=== PATIENT | female | born 1995 | race Caucasian/White ===

== ENCOUNTER 2018-11-26 13:34 | Day surgery (SDC) | payer OTHER ==
[2018-11-21 10:02] LABS: HEMATOCRIT 39.3 % (36.0-47.0); HEMOGLOBIN 13.9 g/dL (12.0-15.5); MEAN CORPUSCULAR HEMOGLOBIN 29.3 pg (27.0-33.4); MEAN CORPUSCULAR HGB CONC 35.5 g/dL (32.0-36.0); MEAN CORPUSCULAR VOLUME 83 fl (80-97); PLATELET COUNT 201 10^3/uL (150-450); RED BLOOD COUNT 4.75 10^6/uL (3.72-5.28); RED CELL DISTRIBUTION WIDTH 13.1 % (11.5-14.0); WHITE BLOOD COUNT 6.4 10^3/uL (4.0-10.5)
[2018-11-21 10:26] LABS: ALANINE AMINOTRANSFERASE 27 U/L (9-52); ALBUMIN 4.7 g/dL (3.5-5.0); ALKALINE PHOSPHATASE 70 U/L (38-126); AMYLASE 61 U/L (30-110); ANION GAP 9 (5-19); ASPARTATE AMINO TRANSFERASE 24 U/L (14-36); BILIRUBIN,DIRECT 0.2 mg/dL (0.0-0.4); BILIRUBIN,TOTAL 0.5 mg/dL (0.2-1.3); BLOOD UREA NITROGEN 16 mg/dL (7-20); CALCIUM 9.3 mg/dL (8.4-10.2); CARBON DIOXIDE 27 mmol/L (22-30); CHLORIDE 106 mmol/L (98-107); GLUCOSE 84 mg/dL (75-110); POTASSIUM 4.4 mmol/L (3.6-5.0); SODIUM 142.1 mmol/L (137-145); TOTAL PROTEIN 7.4 g/dL (6.3-8.2)
[~2018-11-26 13:34] MED LIST: ACETAMINOPHEN 325 MG TABLET PO PRN; BUPIVACAINE HCL 0.25 % INJ/PF (2.5 MG/1 ML) 30 ML VIAL ONE; CEFAZOLIN 1 GM/D5W RTU 1 GM/50 ML RTUPB IV PRN; DEXAMETHASONE SOD PHOSPHATE INJ 4 MG/1 ML VIAL ONE; LACTATED RINGERS 1000 ML IV PRN; LIDOCAINE 0.5% INJ-PF (5 MG/ML) 50 ML SDV SUBCUT PRN; LIDOCAINE 2% INJ-PF (20 MG/ML) 2 ML AMPUL ONE; ROCURONIUM BROMIDE INJ 50 MG/5 ML VIAL IV ONE; SUCCINYLCHOLINE CHLORIDE INJ 200 MG/10 ML VIAL ONE
[2018-11-26] MEDS ORDERED: CEFAZOLIN 1 GM/D5W RTU 1 GM/50 ML RTUPB IV ONE (14:27)
[2018-11-26] MEDS ORDERED: ONDANSETRON HCL INJ/PF 4 MG/2 ML SDV ONE (14:27)
[2018-11-26] MEDS ORDERED: ONDANSETRON HCL INJ/PF 4 MG/2 ML SDV IV ONE ×2 (15:00→15:30)
[2018-11-26] MEDS ORDERED: HYDROMORPHONE HCL INJ/PF 2 MG/ML AMPULE ONE (15:23)
[2018-11-26] MEDS ORDERED: FENTANYL CITRATE INJ/PF 100 MCG/2 ML AMPUL ONE (15:23)
[2018-11-26] MEDS ORDERED: MIDAZOLAM 2 MG/2 ML INJ ONE (15:23)
[2018-11-26] MEDS ORDERED: ACETAMINOPHEN 1,000 MG/100 ML RTUPB IV ONE (15:24)
[2018-11-26] MEDS ORDERED: PROPOFOL INJ 200 MG/20 ML VIAL IV ONE (15:24)
[2018-11-26] MEDS ORDERED: EPHEDRINE SULFATE INJ 50 MG/1 ML AMPULE ONE (15:27)
[2018-11-26] MEDS ORDERED: SUGAMMADEX SODIUM 200 MG/2 ML SDV IV ONE (15:27)
[2018-11-26] MEDS ORDERED: FENTANYL CITRATE INJ/PF 100 MCG/2 ML AMPUL IV PRN ×3 (16:32)
[2018-11-26] MEDS ORDERED: PROMETHAZINE HCL INJ 25 MG/1 ML VIAL IV PRN (16:32)
[2018-11-26] MEDS ORDERED: MEPERIDINE HCL/PF INJ 25 MG/1 ML DISP.SYRIN IV PRN (16:32)
[2018-11-26] MEDS ORDERED: DIPHENHYDRAMINE HCL 50 MG/ML VIAL IV PRN (16:32)
--- NOTE | 2018-11-26 16:37 | Operative Report ---
Operative Report DATE OF SURGERY: 11/26/18 PREOPERATIVE DIAGNOSIS: Biliary dyskinesia POSTOPERATIVE DIAGNOSIS: Same OPERATION: Laparoscopic cholecystectomy SURGEON: CHEVY ALICIA 1ST SERVICE CLERK: CARIE RODRIGUEZ TISSUE REMOVED OR ALTERED: Gallbladder with contents COMPLICATIONS: None ESTIMATED BLOOD LOSS: Scant INTRAOPERATIVE FINDINGS: See below PROCEDURE: After obtaining informed consent, the patient was taken to the operating room. General Anesthesia was induced; the arms were extended, and the abdomen was exposed, and prepped and draped in a sterile fashion. Instrumentation was set up for laparoscopic cholecystectomy. Surgical plan and surgical timeout were conducted. A vertical incision was made above the umbilicus, and a verres needle was inserted uneventfully into the peritoneal cavity. Pneumoperitoneum was established. The verres needle was removed and a 5 mm trocar was inserted and a 5 mm flexible laparoscope was inserted. Visualization of the peritoneal cavity confirmed safe uneventful entry. Under direct visualization 3 additional 5 mm ports were esta blished, one in the subxiphoid position and second in the subcostal position. Visualization of the hepatobiliary anatomy revealed no anatomic variations. A grasper was placed on the fundus of the gallbladder and the gallbladder is elevated over the right surface of the liver; a second grasper was used to grasp the infundibulum of the gallbladder. The neck of the gallbladder and junction with the cystic duct was dissected out. The Cystic artery was in its usual location medial and cephalad to the cystic duct. The cystic artery was surrounded with a right angle clamp, clipped twice proximally and divided with laparoscopic scissors. We now opened the triangle of Calot by dividing the peritoneal reflection on both the medial and lateral sides of the cystic duct infundibular junction. The critical view was obtained. We now milked the cystic duct of any possible stones, clipped the cystic duct approximately 2 times once distally and divided with scissors. The gallbladder was now removed from the undersurface of the liver using hook cautery dissection. Graspers were repositioned and the gallbladder was removed uneventfully from the abdominal cavity through the super umbilical port site incision. The specimen was examined, then passed off to pathology for permanent analysis. We returned to the peritoneal cavity check for bleeding, and evidence of bile leak, and there was none. We Confirmed satisfactory placement of clips on cystic duct and cystic artery were secured . At this point we felt the operation was complete. The subcutaneous tissue was then anesthetized with quarter percent Marcaine Sponge and needle counts are correct. All ports removed under direct visualization pneumoperitoneum evacuated, and 5 mm port wounds closed with 3-0 Vicryl suture, benzoin and Steri-Strips. The patient was extubated, and taken to the recovery room in stable condition. The physician recruitment assistant, Ms. Dougherty, provided assistance during this case by: Assisting and port insertion, retracting tissue, instillation of local anesthesia and closure of skin incisions.
[2018-11-26] MEDS ORDERED: OXYCODONE-ACETAMINOPHEN 5-325 MG TABLET PO PRN (16:44)
--- NOTE | 2018-11-26 16:44 | Discharge Summary ---
Discharge Summary (SDC) - Discharge Final Diagnosis: biliary dyskinesia Date of Surgery: 11/26/18 Discharge Date: 11/26/18 Condition: Stable Treatment or Instructions: [facility] [address] [place] [id number] Discharge Instructions: Laparoscopic Surgery 1. General Information: a. DO NOT DRIVE a car or operate dangerous machinery for 3-4 days or while taking narcotic pain pills. b. DO NOT consume alcohol, tranquilizers, sleeping medications or any non- prescribed medications for 24 hours unless approved by your doctor or as long as taking narcotic prescription medications. c. DO NOT make important decisions or sign any important papers for the first 24 hours after surgery. d. When discharged home the same day of surgery have a responsible person with you for the first night. 2. Activity Restrictions: 2 weeks a. NO heavy lifting, straining abdominal muscles, bending over a lot, yard work, house work, or sports for [address] NOT [address] for 3-4 days or while taking _Toradol_ . c. It is fine to go for walks, up and down steps, ride in a car. d. Elevate your head when sleeping/resting. 3. Treatment: a. You may shower 24 hours after surgery, no baths or swimming for 2 weeks. Remove band-aids or dressings before shower but leave paper strips (steri- strips) on the skin to fall off on their own. If still on at postoperative visit they will be removed then. b. Drainage of fluid or blood is not unusual from an incision. If occurs, you can clean with peroxide and cotton ball daily and cover with dry gauze until the wound seals. c. If a lot of bleeding occurs, you can hold pressure with a gauze or cloth over the site for 10 minutes and it will usually stop. If bleeding continues you will need to call for possible evaluation in office or emergency room. 4. Medications: a. _toradol_ may be taken for pain as needed, one tablet every6 hours. b. You should resume all normal medications unless a change is specified by your doctors. c. Antibiotic(s) if needed ( NONE) 5. Diet: Begin with clear liquids and may progress to your normal diet if not nauseated. No high fat, high protein foods the day of surgery. 6. The following may occur after laparoscopic surgery: a. Shoulder or upper back ache from retained gas that should resolve in 1-2 days b. Soreness and bruising at incision sites will resolve with time. c. Scrotal swelling (labia in women) and bruising is often seen after hernia surgery. d. Sore throat e. Fatigue may last days to weeks. f. Difficulty urinating may occur and may need to come into emergency room for urinary catheter placement. 7. Notify Physician If: a. Worsening or pain not improved with pain medication b. Persistent nausea and vomiting c. Fever above 101 d. Persistent bleeding or swelling at operative site e. Unable to urinate and uncomfortable bladder 6-8 hours after surgery 8..Follow Up Care: a. Schedule a follow up appointment with your doctor for 2 weeks. In the event of any postoperative problems or questions or you may call the office during business hours or the On-Call physician evenings and weekends at [facility]. [facility] I understand the instructions for my postoperative care as described above and a copy has been given to me. Patient/Significant Other Witness Date Prescriptions: Ketorolac Tromethamine [Toradol 10 mg Tablet] 10 mg PO Q6HP PRN #20 tablet PRN Reason: Referrals: ZENY URIBE MD [Primary Care Provider] - Discharge Diet: Other (Comments) - small bland diet Discharge Activity: Balance Activity w/Rest, No Lifting Over 10 Pounds, Walk Frequently Report the Following to Your Physician Immediately: Nausea, Vomiting, Increase in Pain, Fever over 101 Degrees, Redness, Swelling, Warmth, Drainage-Foul Smelling
[2018-11-26 18:52] VITALS: BP 126/75
== END 2018-11-26 18:50 | disposition home or self-care (01) ==
LOC: OROUT 13:34
PROVIDERS: ATTEND Surgery
DX: K82.8 Other specified diseases of gallbladder (principal); F41.9 Anxiety disorder, unspecified; Z79.899 Other long term (current) drug therapy
CPT/HCPCS: 47562; 36415; 82150; 85027; 81025; 80076; 80048; 88304 ×2; J2250; J0690; J3490 ×3; J1100; J3010; J1170; J0330; J2405; J2704; J0131; 790

== ENCOUNTER 2020-08-04 17:46 | Outpatient (CLI) | payer MEDICAID ==
[2020-08-04] MEDS ORDERED: BETAMET ACET/BETAMET NA INJ 6 MG/1 ML IM STA (17:50)
[2020-08-04] MEDS ORDERED: BETAMET ACET/BETAMET NA INJ 6 MG/1 ML ONE (18:04)
== END 2020-08-04 18:19 | disposition home or self-care (01) ==
LOC: LC 17:46
PROVIDERS: ATTEND Obstetrics & Gynecology Gynecology
DX: O13.3 Gestational [pregnancy-induced] hypertension without significant proteinuria, third trimester (principal); Z3A.37 37 weeks gestation of pregnancy
CPT/HCPCS: 96372; J0702

== ENCOUNTER 2020-08-05 18:10 | Outpatient (CLI) | payer MEDICAID ==
[2020-08-05] MEDS ORDERED: BETAMET ACET/BETAMET NA INJ 6 MG/1 ML ONE (18:13)
[2020-08-05] MEDS ORDERED: BETAMET ACET/BETAMET NA INJ 6 MG/1 ML IM ONE (18:35)
== END 2020-08-05 18:28 | disposition home or self-care (01) ==
LOC: LC 18:10
PROVIDERS: ATTEND Student in an Organized Health Care Education/Training Program
DX: O13.3 Gestational [pregnancy-induced] hypertension without significant proteinuria, third trimester (principal); Z3A.34 34 weeks gestation of pregnancy
CPT/HCPCS: 96372; 59025; J0702

== ENCOUNTER 2020-08-12 15:54 | Outpatient (CLI) | payer MEDICAID ==
[2020-08-12 16:59] LABS: ABSOLUTE EOSINOPHILS # (AUTO) 0.1 10^3/uL (0.0-0.6); ABSOLUTE LYMPHOCYTES (AUTO) 1.5 10^3/uL (0.5-4.7); ABSOLUTE MONOCYTES (AUTO) 0.8 10^3/uL (0.1-1.4); BASOPHILS % (AUTO) 0.2 % (0-2); EOSINOPHILS % (AUTO) 1.2 % (0-6); HEMOGLOBIN 10.3 g/dL (12.0-15.5); LYMPHOCYTES % (AUTO) 14.5 % (13-45); MEAN CORPUSCULAR HGB CONC 35.4 g/dL (32.0-36.0); MEAN CORPUSCULAR VOLUME 82 fl (80-97); MONOCYTES % (AUTO) 7.8 % (3-13); PLATELET COUNT 197 10^3/uL (150-450); RED BLOOD COUNT 3.54 10^6/uL (3.72-5.28); RED CELL DISTRIBUTION WIDTH 14.5 % (11.5-14.0); SEGMENTED NEUTROPHILS % (AUTO) 76.3 % (42-78); TOTAL CELLS COUNTED % (AUTO) 100 %; WHITE BLOOD COUNT 10.5 10^3/uL (4.0-10.5)
[2020-08-12 17:03] LABS: APPEARANCE,URINE CLOUDY; BILIRUBIN,URINE NEGATIVE (NEGATIVE); COLOR,URINE YELLOW; GLUCOSE, URINE NEGATIVE (NEGATIVE); KETONES,URINE NEGATIVE (NEGATIVE); LEUKOCYTE ESTERASE,URINE SMALL (NEGATIVE); NITRITE,URINE NEGATIVE (NEGATIVE); PROTEIN,URINE NEGATIVE (NEGATIVE); URINE SPECIFIC GRAVITY 1.009; UROBILINOGEN,URINE NEGATIVE mg/dL (<2.0)
[2020-08-12 17:21] LABS: URINE AMPHETAMINES SCREEN NEGATIVE; URINE BARBITURATES SCREEN NEGATIVE; URINE BENZODIAZEPINES SCREEN NEGATIVE; URINE COCAINE SCREEN NEGATIVE; URINE MARIJUANA (THC) SCREEN NEGATIVE; URINE METHADONE SCREEN NEGATIVE; URINE PHENCYCLIDINE SCREEN NEGATIVE
[2020-08-12 17:25] LABS: UR PRO/CREAT RATIO RESULT 0.3 mg/mg (0.0-0.2); URINE CREATININE 52.5 mg/dL (16-327); URINE PROTEIN 17.4 mg/dL (<12)
[2020-08-12 17:33] LABS: ALKALINE PHOSPHATASE 97 U/L (38-126); ANION GAP 10 (5-19); ASPARTATE AMINO TRANSFERASE 37 U/L (14-36); BILIRUBIN,DIRECT 0.1 mg/dL (0.0-0.4); BILIRUBIN,TOTAL 0.4 mg/dL (0.2-1.3); BLOOD UREA NITROGEN 4 mg/dL (7-20); CALCIUM 8.3 mg/dL (8.4-10.2); CARBON DIOXIDE 21 mmol/L (22-30); CHLORIDE 106 mmol/L (98-107); GLUCOSE 114 mg/dL (75-110); POTASSIUM 3.2 mmol/L (3.6-5.0); TOTAL PROTEIN 5.5 g/dL (6.3-8.2); URIC ACID 3.1 mg/dL (2.5-6.2)
--- NOTE | 2020-08-13 19:25 | Non Stress Test Report ---
Non Stress Test Datetime Report Generated by CPN: 08/13/2020 19:25 DEMOGRAPHIC EGA NST: 34.0 INDICATION Indication for Study (NST) Other: IUP @ 34.0 VITAL SIGNS Temperature - NST: 97.3 Pulse - NST: 81 RESP - NST: 22 NBPSYS NST: 150 NBPDIA NST: 79 MONITORING Monitor Explained: Monitor Explained; Test Explained; Patient Verbalized Understanding Time on Monitor: 08/12/2020 17:00 Time off Monitor: 08/12/2020 17:30 NST Duration: 30 NST INTERVENTIONS NST Interventions: None Physician Notified NST: Dr. Nava BABY A: [id number] BABY A Movement : Present Contraction Frequency : None FHR Baseline : 155 Accelerations : 15X15 Decelerations : None Variability : Moderate 6-25bpm NST Review: Meets Criteria for Reactive NST NST Review and Verified By : Zrui Jeff RN NST Results: Reactive NST REPORT Report Trigger: Send Report
--- NOTE | 2020-08-13 21:42 | Non Stress Test Report ---
Non Stress Test Datetime Report Generated by CPN: 08/13/2020 21:41 DEMOGRAPHIC EGA NST: 34.1 INDICATION Indication for Study (NST) Other: > 32 weeks GA MONITORING Monitor Explained: Monitor Explained; Test Explained; Patient Verbalized Understanding Time on Monitor: 08/13/2020 19:39 Time off Monitor: 08/13/2020 21:08 NST Duration: 89 NST INTERVENTIONS NST Interventions: PO Hydration Physician Notified NST: Dr. Becker BABY A Movement : Present Contraction Frequency : Rare FHR Baseline : 145 Accelerations : 15X15 Decelerations : None Variability : Moderate 6-25bpm NST Review: Meets Criteria for Reactive NST NST Review and Verified By : Zuri Nance RN NST Results: Reactive NST REPORT Report Trigger: Send Report
== END 2020-08-12 17:52 | disposition home or self-care (01) ==
LOC: LC 15:54
PROVIDERS: ATTEND Student in an Organized Health Care Education/Training Program
DX: O14.93 Unspecified pre-eclampsia, third trimester (principal); Z3A.33 33 weeks gestation of pregnancy
CPT/HCPCS: 36415; 59025; 80053; 80307; 81001; 82570; 83615; 84156; 84550; 85025

== ENCOUNTER 2020-08-13 19:28 | Outpatient (CLI) | payer MEDICAID ==
[2020-08-13 20:25] LABS: URINE PROTEIN 17.7 mg/dL (<12)
[2020-08-13 20:26] LABS: 24 HOUR URINE PROTEIN RESULT 499 mg/day (42-225)
== END 2020-08-13 21:12 | disposition home or self-care (01) ==
LOC: LC 19:28
PROVIDERS: ATTEND Obstetrics & Gynecology Gynecology
DX: O14.93 Unspecified pre-eclampsia, third trimester (principal); Z3A.34 34 weeks gestation of pregnancy
CPT/HCPCS: 59025; 84156

== ENCOUNTER 2020-08-18 18:15 | Outpatient (CLI) | payer MEDICAID ==
[2020-08-18] MEDS ORDERED: RINGERS SOLUTION,LACTATED 1,000 ML IV PRN (18:52)
[2020-08-18 19:14] LABS: APPEARANCE,URINE CLOUDY; BILIRUBIN,URINE NEGATIVE (NEGATIVE); COLOR,URINE YELLOW; GLUCOSE, URINE NEGATIVE (NEGATIVE); KETONES,URINE NEGATIVE (NEGATIVE); LEUKOCYTE ESTERASE,URINE SMALL (NEGATIVE); NITRITE,URINE NEGATIVE (NEGATIVE); PROTEIN,URINE 30 mg/dL (NEGATIVE); UROBILINOGEN,URINE NEGATIVE mg/dL (<2.0)
[2020-08-18 19:43] LABS: UR PRO/CREAT RATIO RESULT 0.3 mg/mg (0.0-0.2); URINE CREATININE 73.5 mg/dL (16-327); URINE PROTEIN 25.5 mg/dL (<12)
[2020-08-18 20:07] LABS: ABSOLUTE BASOPHILS # (AUTO) 0.1 10^3/uL (0.0-0.2); ABSOLUTE EOSINOPHILS # (AUTO) 0.1 10^3/uL (0.0-0.6); ABSOLUTE LYMPHOCYTES (AUTO) 1.8 10^3/uL (0.5-4.7); ABSOLUTE MONOCYTES (AUTO) 1.1 10^3/uL (0.1-1.4); ABSOLUTE NEUT (AUTO) 10.6 10^3/uL (1.7-8.2); BASOPHILS % (AUTO) 0.5 % (0-2); EOSINOPHILS % (AUTO) 0.8 % (0-6); HEMATOCRIT 30.2 % (36.0-47.0); HEMOGLOBIN 10.3 g/dL (12.0-15.5); LYMPHOCYTES % (AUTO) 13.2 % (13-45); MEAN CORPUSCULAR VOLUME 82 fl (80-97); MONOCYTES % (AUTO) 7.8 % (3-13); PLATELET COUNT 198 10^3/uL (150-450); RED BLOOD COUNT 3.67 10^6/uL (3.72-5.28); RED CELL DISTRIBUTION WIDTH 15.1 % (11.5-14.0); SEGMENTED NEUTROPHILS % (AUTO) 77.7 % (42-78); TOTAL CELLS COUNTED % (AUTO) 100 %; WHITE BLOOD COUNT 13.6 10^3/uL (4.0-10.5)
[2020-08-18 20:10] LABS: URINE AMPHETAMINES SCREEN NEGATIVE; URINE BARBITURATES SCREEN NEGATIVE; URINE BENZODIAZEPINES SCREEN NEGATIVE; URINE COCAINE SCREEN NEGATIVE; URINE MARIJUANA (THC) SCREEN NEGATIVE; URINE METHADONE SCREEN NEGATIVE; URINE PHENCYCLIDINE SCREEN NEGATIVE
[2020-08-18] MEDS ORDERED: LABETALOL HCL 200 MG TABLET PO ONE ×2 (20:12→21:00)
[2020-08-18] MEDS ORDERED: BETAMET ACET/BETAMET NA INJ 6 MG/1 ML IM PRN (20:13)
[2020-08-18] MEDS ORDERED: LABETALOL HCL 200 MG TABLET ONE (20:16)
[2020-08-18] MEDS ORDERED: BETAMET ACET/BETAMET NA INJ 6 MG/1 ML ONE ×2 (20:16→21:50)
[2020-08-18 20:32] LABS: ALBUMIN 3.2 g/dL (3.5-5.0); ALKALINE PHOSPHATASE 106 U/L (38-126); ANION GAP 8 (5-19); ASPARTATE AMINO TRANSFERASE 29 U/L (14-36); BILIRUBIN,TOTAL 0.3 mg/dL (0.2-1.3); BLOOD UREA NITROGEN 4 mg/dL (7-20); CARBON DIOXIDE 25 mmol/L (22-30); CHLORIDE 105 mmol/L (98-107); GLUCOSE 101 mg/dL (75-110); POTASSIUM 3.3 mmol/L (3.6-5.0); TOTAL PROTEIN 5.9 g/dL (6.3-8.2); URIC ACID 3.1 mg/dL (2.5-6.2)
--- NOTE | 2020-08-18 21:52 | Non Stress Test Report ---
Non Stress Test Datetime Report Generated by CPN: 08/18/2020 21:52 DEMOGRAPHIC EGA NST: 34.6 EGA NST: 34.6 INDICATION Indication for Study (NST) Other: LC- pre-E workup Indication for Study (NST) Other: mild pre-eclampsia VITAL SIGNS Temperature - NST: 98.5 Pulse - NST: 105 RESP - NST: 18 URINE RESULTS Urine Glucose - NST: Positive MONITORING Monitor Explained: Monitor Explained; Test Explained; Patient Verbalized Understanding Monitor Explained: Monitor Explained; Test Explained; Patient Verbalized Understanding Time on Monitor: 08/18/2020 19:00 Time on Monitor: 08/18/2020 18:30 Time off Monitor: 08/18/2020 21:34 NST Duration: 154 NST INTERVENTIONS NST Interventions: IV Fluids; Meal Given Physician Notified NST: dr. Becker Physician Notified NST: Dr. Becker BABY A: [id number] BABY A Movement : Present Contraction Frequency : irritability FHR Baseline : 150 Accelerations : 15X15 Decelerations : None Variability : Moderate 6-25bpm NST Review: Meets Criteria for Reactive NST NST Review and Verified By : Flip Miramontes RN NST Results: Reactive NST REPORT Report Trigger: Send Report
== END 2020-08-18 21:43 | disposition home or self-care (01) ==
LOC: LC 18:15
PROVIDERS: ATTEND Obstetrics & Gynecology Gynecology
DX: O14.03 Mild to moderate pre-eclampsia, third trimester (principal); Z3A.34 34 weeks gestation of pregnancy
CPT/HCPCS: 59025; 36415; 82962; 83615; 84156; 84550; 82570; 85025; 80053; 81001; 80307; J0702

== ENCOUNTER 2020-08-19 20:04 | Outpatient (CLI) | payer MEDICAID ==
[2020-08-19 21:03] LABS: URINE PROTEIN 19.5 mg/dL (<12)
[2020-08-19 21:10] LABS: 24 HOUR URINE PROTEIN RESULT 556 mg/day (42-225)
== END 2020-08-19 21:48 | disposition home or self-care (01) ==
LOC: LC 20:04
PROVIDERS: ATTEND Student in an Organized Health Care Education/Training Program
DX: O14.93 Unspecified pre-eclampsia, third trimester (principal); O24.410 Gestational diabetes mellitus in pregnancy, diet controlled; O99.343 Other mental disorders complicating pregnancy, third trimester; F41.8 Other specified anxiety disorders; Z3A.36 36 weeks gestation of pregnancy
CPT/HCPCS: 59025; 84156

== ENCOUNTER 2020-09-06 05:16 | Inpatient (IN) | payer MEDICAID ==
[2020-08-31 09:22] LABS: HEMATOCRIT 33.1 % (36.0-47.0); HEMOGLOBIN 11.4 g/dL (12.0-15.5); MEAN CORPUSCULAR HEMOGLOBIN 27.7 pg (27.0-33.4); MEAN CORPUSCULAR HGB CONC 34.5 g/dL (32.0-36.0); MEAN CORPUSCULAR VOLUME 80 fl (80-97); PLATELET COUNT 220 10^3/uL (150-450); RED BLOOD COUNT 4.12 10^6/uL (3.72-5.28); RED CELL DISTRIBUTION WIDTH 14.9 % (11.5-14.0); WHITE BLOOD COUNT 12.4 10^3/uL (4.0-10.5)
[2020-08-31 09:52] LABS: APPEARANCE,URINE CLOUDY; BILIRUBIN,URINE NEGATIVE (NEGATIVE); COLOR,URINE YELLOW; GLUCOSE, URINE NEGATIVE (NEGATIVE); KETONES,URINE NEGATIVE (NEGATIVE); LEUKOCYTE ESTERASE,URINE SMALL (NEGATIVE); NITRITE,URINE NEGATIVE (NEGATIVE); PROTEIN,URINE 30 mg/dL (NEGATIVE); URINE SPECIFIC GRAVITY 1.013; UROBILINOGEN,URINE NEGATIVE mg/dL (<2.0)
[2020-08-31 09:54] LABS: URINE AMPHETAMINES SCREEN NEGATIVE; URINE BARBITURATES SCREEN NEGATIVE; URINE BENZODIAZEPINES SCREEN NEGATIVE; URINE COCAINE SCREEN NEGATIVE; URINE MARIJUANA (THC) SCREEN NEGATIVE; URINE METHADONE SCREEN NEGATIVE; URINE PHENCYCLIDINE SCREEN NEGATIVE
[2020-09-06] MEDS ORDERED: CEFAZOLIN 1 GM/D5W RTU 1 GM/50 ML RTUPB IV PRN (06:30)
[2020-09-06] MEDS ORDERED: AZITHROMYCIN 500 MG in DEXTROSE 5%-WATER 250 ML IV PRN (06:30)
[2020-09-06] MEDS ORDERED: CEFAZOLIN 2 GM/D5W RTU 2 GM/50 ML RTUPB IV ONE (07:29)
[2020-09-06] MEDS ORDERED: OXYTOCIN 10 UNIT/ML VIAL ONE ×2 (07:34→07:35)
[2020-09-06] MEDS ORDERED: OXYTOCIN/0.9 % SODIUM CHLORIDE 30 UNIT/500 ML RTUINJ ONE (07:34)
[2020-09-06] MEDS ORDERED: ONDANSETRON HCL INJ/PF 4 MG/2 ML SDV ONE (07:34)
[2020-09-06] MEDS ORDERED: FENTANYL CITRATE INJ/PF 100 MCG/2 ML AMPUL ONE ×2 (07:34→09:48)
[2020-09-06] MEDS ORDERED: MORPHINE SULFATE 10 MG/ML INJ ONE (07:34)
[2020-09-06] MEDS ORDERED: MIDAZOLAM 2 MG/2 ML INJ ONE (07:34)
[2020-09-06] MEDS ORDERED: RINGERS SOLUTION,LACTATED 1,000 ML IV PRN ×2 (07:37→09:01)
[2020-09-06] MEDS ORDERED: RINGERS SOLUTION,LACTATED 1,000 ML IV ONE (07:45)
[2020-09-06] MEDS ORDERED: DIPHENHYDRAMINE HCL 50 MG/ML VIAL IV PRN (08:37)
[2020-09-06] MEDS ORDERED: MEPERIDINE HCL/PF INJ 25 MG/1 ML DISP.SYRIN IV PRN (08:37)
[2020-09-06] MEDS ORDERED: FENTANYL CITRATE INJ/PF 100 MCG/2 ML AMPUL IV PRN ×3 (08:37)
[2020-09-06] MEDS ORDERED: OXYCODONE-ACETAMINOPHEN 5-325 MG TABLET PO PRN ×2 (08:37)
[2020-09-06] MEDS ORDERED: PROMETHAZINE HCL INJ 25 MG/1 ML VIAL IV PRN ×3 (08:37→09:01)
[2020-09-06] MEDS ORDERED: MORPHINE SULFATE 10 MG/ML INJ IV PRN ×2 (08:37→09:01)
[2020-09-06] MEDS ORDERED: ACETAMINOPHEN 325 MG TABLET PO PRN (09:01)
[2020-09-06] MEDS ORDERED: OXYTOCIN/0.9 % SODIUM CHLORIDE 30 UNIT/500 ML RTUINJ IV PRN (09:01)
[2020-09-06] MEDS ORDERED: SIMETHICONE 80 MG TAB.CHEW PO PRN (09:01)
[2020-09-06] MEDS ORDERED: ACETAMINOPHEN 1,000 MG/100 ML RTUPB IV PRN (09:01)
[2020-09-06] MEDS ORDERED: MEASLES,MUMPS&RUBELLA VACC/PF 0.5 ML VIAL SUBCUT PRN (09:01)
[2020-09-06] MEDS ORDERED: DIPH/PERTUSS(ACELL)/TETANUS VAC/PF 0.5 ML SYR (>=10YO) IM PRN (09:01)
--- NOTE | 2020-09-06 09:29 | Operative Report ---
Operative Report DATE OF SURGERY: 09/06/20 PREOPERATIVE DIAGNOSIS: IUP at 37 weeks and 4 days, preeclampsia, HSV outbreak POSTOPERATIVE DIAGNOSIS: Same OPERATION: Primary low transverse hysterotomy section SURGEON: SOULEYMANE VELASCO ANESTHESIA: Spinal COMPLICATIONS: None ESTIMATED BLOOD LOSS: 850 cc INTRAOPERATIVE FINDINGS: Pale infant cephalic presentation Apgars 8 9, evidence of herpetic outbreak at patient's labia PROCEDURE: PROCEDURE IN DETAIL: The patient was taken to the operating room, prepared and draped in a normal sterile fashion in a supine position with a leftward tilt. A transverse skin incision was made with a scalpel and carried through to the underlying layer of fascia with the same scalpel. The fascia was excised in the midline and extended laterally with Valery. The fascia was then dissected from the rectus muscle sharply with Valery and the rectus muscle was divided and the peritoneal cavity was entered sharply with the same Metzenbaum. With good visualization of the bladder and the uterus the bladder blade was inserted. The hysterotomy was nicked with a scalpel and extended laterally with surgeon finger fraction. The was then delivered atraumatically. The nose and mouth were suctioned with a suction bulb, the cord was clamped and cut and handed off to awaiting pediatricians. Cord blood was collected. The placenta was removed manually. The uterus was exteriorized and cleared of clots and debris. The hysterotomy was closed with 0 Monocryl in a running, locked fashion. A second layer of the same suture was used to imbricate to ensure hemostasis. The uterus was returned to the abdomen and peritoneal cavity was cleared of clots and debris. The rectus muscle and peritoneum were repaired with mattress stitch of 2-0 Chromic. The fascia was closed with 0-Vicryl. The subcutaneous layer was closed with plain catgut and the skin was closed with 4-0 Vicryl. The patient tolerated the procedure well. Sponge, lap, and needle counts correct x2 and the patient was taken to recovery in stable condition.
[2020-09-06] MEDS ORDERED: PROMETHAZINE HCL INJ 25 MG/1 ML VIAL ONE (09:48)
[2020-09-06] MEDS: KETOROLAC TROMETHAMINE INJ/PF 30 MG/1 ML SDV IV SCH ×2 (13:48→21:56)
[2020-09-06] MEDS: PRENATAL VITAMIN W DHA CAPSULE PO SCH (13:49)
[2020-09-06] MEDS: DOCUSATE SODIUM 100 MG CAPSULE PO SCH ×2 (13:49→17:16)
[2020-09-06] MEDS: OXYCODONE-ACETAMINOPHEN 5-325 MG TABLET PO PRN ×2 (17:16→18:41)
[2020-09-06] MEDS: LABETALOL HCL 200 MG TABLET PO SCH (21:56)
[2020-09-07] MEDS: KETOROLAC TROMETHAMINE INJ/PF 30 MG/1 ML SDV IV SCH (05:06)
[2020-09-07] MEDS: DOCUSATE SODIUM 100 MG CAPSULE PO SCH ×2 (09:12→17:33)
[2020-09-07] MEDS: PRENATAL VITAMIN W DHA CAPSULE PO SCH (09:12)
[2020-09-07] MEDS: LABETALOL HCL 200 MG TABLET PO SCH ×2 (09:13→21:13)
[2020-09-07] MEDS: OXYCODONE-ACETAMINOPHEN 5-325 MG TABLET PO PRN ×3 (09:13→23:00)
[2020-09-07] MEDS: NIFEDIPINE 30 MG TAB.ER.24 PO SCH (09:15)
[2020-09-07 10:41] LABS: HEMATOCRIT 25.9 % (36.0-47.0); HEMOGLOBIN 8.9 g/dL (12.0-15.5); MEAN CORPUSCULAR HEMOGLOBIN 27.4 pg (27.0-33.4); MEAN CORPUSCULAR HGB CONC 34.2 g/dL (32.0-36.0); MEAN CORPUSCULAR VOLUME 80 fl (80-97); PLATELET COUNT 149 10^3/uL (150-450); RED BLOOD COUNT 3.23 10^6/uL (3.72-5.28); RED CELL DISTRIBUTION WIDTH 14.9 % (11.5-14.0); WHITE BLOOD COUNT 10.3 10^3/uL (4.0-10.5)
[2020-09-07] MEDS ORDERED: IRON SUCROSE COMPLEX INJ/PF 100 MG/5 ML SDV IV ONE ×2 (10:54→16:00)
--- NOTE | 2020-09-07 11:06 | PDOC PROGRESS REPORT ---
Subjective-OB Progress Note for:: 09/07/20 Subjective: 25yo G1 now P1 s/p p c/s ppd1. Pt is ambulating, voiding, without difficulty. Denies SOB/dizziness/lightheadedness. Reports pain well controlled with medication. Physical Exam (OB) Vital Signs: Temp Pulse Resp BP Pulse Ox 98.0 F 96 16 135/78 H 100 09/07/20 08:07 09/07/20 08:07 09/07/20 08:07 09/07/20 08:07 09/07/20 08:07 Intake & Output 09/06/20 09/07/20 09/08/20 06:59 06:59 06:59 Intake Total 540 550 Output Total 1850 Balance -1310 550 - General General Appearance: Appears well In distress: None - PIH/Pre-Eclampsia DTR's: 2 + Clonus: Negative Headache: Absent Epigastric Pain: No Visual Changes: No - Dressing Removed: No Incision: Dressing - Maternal Morbidity 59. Maternal Morbidity (serious complications experinced by the mother associated with labor and delivery: None of the above - Lochia Lochia Amount: Scant < 10 ml Lochia Color: Rubra/Red - Abdomen Description: Soft, Round Hernia Present: No Fundal Description: Firm, Midline Fundal Height: u/u - u/2 - Respiratory Respiratory Status: No respiratory distress - Extremities Upper extremity: Normal inspection - Neurological Cognition: Normal Orientation: AAOx4 - Psychological Associated symptoms: Normal affect, Normal mood Objective-Diagnostic Laboratory: 09/07/20 09:35 09/07/20 09:35 WBC 10.3 RBC 3.23 L Hgb 8.9 L Hct 25.9 L MCV 80 MCH 27.4 MCHC 34.2 RDW 14.9 H Plt Count 149 L Assessment and Plan(PN) - Assessment and Plan (1) Pre-eclampsia added to pre-existing hypertension Is this a current diagnosis for this admission?: Yes Plan: mild range bps , continue to monitor for s/s of pre-e (2) Gestational diabetes mellitus (GDM) affecting Is this a current diagnosis for this admission?: Yes Plan: delivered, f/u as indicated at pp visit (3) Hx of syphilis Is this a current diagnosis for this admission?: Yes Plan: treated early in (4) HSV (herpes simplex virus) infection Is this a current diagnosis for this admission?: Yes Plan: continue valtrex (5) S/P primary low transverse Is this a current diagnosis for this admission?: Yes Plan: Routine pp care (6) Acute blood loss anemia Is this a current diagnosis for this admission?: Yes Plan: increase dietary iron and FeSO4 supplementation, IV iron ordered - Time Spent with Patient Time with patient: Less than 15 minutes Medications reviewed and adjusted accordingly: Yes - Disposition Anticipated Discharge Disposition: Home, Self Care Anticipated Discharge Timeframe: within 24 hours
[2020-09-07] MEDS: IBUPROFEN 800 MG TABLET PO SCH ×3 (12:00→23:01)
[2020-09-08] MEDS: IBUPROFEN 800 MG TABLET PO SCH (05:03)
[2020-09-08 08:20] LABS: HEMATOCRIT 26.1 % (36.0-47.0); HEMOGLOBIN 8.9 g/dL (12.0-15.5); MEAN CORPUSCULAR HEMOGLOBIN 27.6 pg (27.0-33.4); MEAN CORPUSCULAR HGB CONC 34.1 g/dL (32.0-36.0); MEAN CORPUSCULAR VOLUME 81 fl (80-97); PLATELET COUNT 204 10^3/uL (150-450); RED BLOOD COUNT 3.22 10^6/uL (3.72-5.28); RED CELL DISTRIBUTION WIDTH 15.1 % (11.5-14.0); WHITE BLOOD COUNT 12.8 10^3/uL (4.0-10.5)
[2020-09-08] MEDS: DOCUSATE SODIUM 100 MG CAPSULE PO SCH (09:33)
[2020-09-08] MEDS: PRENATAL VITAMIN W DHA CAPSULE PO SCH (09:33)
[2020-09-08] MEDS: NIFEDIPINE 30 MG TAB.ER.24 PO SCH (09:33)
--- NOTE | 2020-09-08 09:51 | PDOC DISCHARGE SUMMARY ---
Impression - Admit/DC Date/PCP Admission Date/Primary Care Provider: 09/06/20 05:16 MARCELA SOTO MD Discharge Date: 09/08/20 - Discharge Diagnosis (1) Acute blood loss anemia Is this a current diagnosis for this admission?: Yes (2) Gestational diabetes mellitus (GDM) affecting Is this a current diagnosis for this admission?: Yes (3) HSV (herpes simplex virus) infection Is this a current diagnosis for this admission?: Yes (4) Hx of syphilis Is this a current diagnosis for this admission?: Yes (5) Pre-eclampsia added to pre-existing hypertension Is this a current diagnosis for this admission?: Yes (6) S/P primary low transverse Is this a current diagnosis for this admission?: Yes - Additional Information Resuscitation Status: Full Code Discharge Diet: Regular Discharge Activity: Balance Activity w/Rest, No Lifting Over 10 Pounds, No Lifting/Push/Pulling, Pelvic Rest, No tub bath Referrals: MARCELA SOTO MD [Primary Care Provider] - Prescriptions: Oxycodone HCl/Acetaminophen [Percocet 5-325 mg Tablet] 1 tab PO Q4HP PRN #30 tablet PRN Reason: Nifedipine [Procardia XL 30 mg Tablet] 30 mg PO DAILY 30 Days #30 tab.er.24 Home Medications: Famotidine [Pepcid 20 mg Tablet] 1 tab PO DAILY 08/05/20 Prenat 115/Iron Fum/Folic/Dss [ 19 Tablet] 1 tab PO DAILY 08/05/20 Nifedipine [Procardia XL 30 mg Tablet] 30 mg PO DAILY 30 Days #30 tab.er.24 09/08/20 Oxycodone HCl/Acetaminophen [Percocet 5-325 mg Tablet] 1 tab PO Q4HP PRN #30 tablet 09/08/20 HPI Gestational Age: 37 Reason(s) for Admission: Ceasarean Section-Primary, Obstetric Complications, PIH, Gestional Diabetes, Other Admission Note: Pre Eclampsia, _+ HSV outbreak Procedures: NST Intrapartum Procedure(s): : Low Cervical, Transverse Hospital Course 59. Maternal Morbidity (serious complications experinced by the mother associated with labor and delivery: None of the above Results Laboratory Results: WBC 12.8 10^3/uL (4.0-10.5) H 09/08/20 08:08 RBC 3.22 10^6/uL (3.72-5.28) L 09/08/20 08:08 Hgb 8.9 g/dL (12.0-15.5) L 09/08/20 08:08 Hct 26.1 % (36.0-47.0) L 09/08/20 08:08 MCV 81 fl (80-97) 09/08/20 08:08 MCH 27.6 pg (27.0-33.4) 09/08/20 08:08 MCHC 34.1 g/dL (32.0-36.0) 09/08/20 08:08 RDW 15.1 % (11.5-14.0) H 09/08/20 08:08 Plt Count 204 10^3/uL (150-450) 09/08/20 08:08 Urine Color YELLOW 08/31/20 08:17 Urine Appearance CLOUDY 08/31/20 08:17 Urine pH 6.0 (5.0-9.0) 08/31/20 08:17 Ur Specific [place] 1.013 08/31/20 08:17 Urine Protein 30 mg/dL (NEGATIVE) H 08/31/20 08:17 Urine Glucose (UA) NEGATIVE mg/dL (NEGATIVE) 08/31/20 08:17 Urine Ketones NEGATIVE mg/dL (NEGATIVE) 08/31/20 08:17 Urine Blood NEGATIVE (NEGATIVE) 08/31/20 08:17 Urine Nitrite NEGATIVE (NEGATIVE) 08/31/20 08:17 Urine Bilirubin NEGATIVE (NEGATIVE) 08/31/20 08:17 Urine Urobilinogen NEGATIVE mg/dL (<2.0) 08/31/20 08:17 Ur Leukocyte Esterase SMALL (NEGATIVE) H 08/31/20 08:17 Urine WBC (Auto) 4 /HPF 08/31/20 08:17 Urine RBC (Auto) 2 /HPF 08/31/20 08:17 Urine Bacteria (Auto) TRACE /HPF 08/31/20 08:17 Squamous Epi Cells Auto 16 /HPF 08/31/20 08:17 Urine Mucus (Auto) OCC /LPF 08/31/20 08:17 Urine Ascorbic Acid NEGATIVE (NEGATIVE) 08/31/20 08:17 Urine Opiates Screen NEGATIVE 08/31/20 08:15 Urine Methadone Screen NEGATIVE 08/31/20 08:15 Ur Barbiturates Screen NEGATIVE 08/31/20 08:15 Ur Phencyclidine Scrn NEGATIVE 08/31/20 08:15 Ur Amphetamines Screen NEGATIVE 08/31/20 08:15 U Benzodiazepines Scrn NEGATIVE 08/31/20 08:15 Urine Cocaine Screen NEGATIVE 08/31/20 08:15 U Marijuana (THC) Screen NEGATIVE 08/31/20 08:15 COVID-19 Source See comment 08/31/20 08:17 COVID-19 (ELKIN) Not Detected (Not Detect) 08/31/20 08:17 Blood Type A POSITIVE 09/05/20 13:15 Antibody Screen NEGATIVE 09/05/20 13:15 Plan Plan of Treatment: f/u at [facility] next week as scheduled for incision check and BP check, Stop labetalol 200 bid, monitor BP at home, take 100mg labetalol if elevated bp >150/90s this evening, trying to taper from labetalol, continue procardia for now Time Spent: Less than 30 Minutes
[2020-09-08 11:21] VITALS: BP 125/73
== END 2020-09-08 12:04 | disposition home or self-care (01) | DRG 787 ==
LOC: 2S 05:16
PROVIDERS: ADMIT Obstetrics & Gynecology; ATTEND Obstetrics & Gynecology
PROC: 10D00Z1 Extraction of Products of Conception, Low, Open Approach (ICD-10-PCS; principal; 2020-09-06)
DX: O11.4 Pre-existing hypertension with pre-eclampsia, complicating childbirth (principal); O98.32 Other infections with a predominantly sexual mode of transmission complicating childbirth; D62 Acute posthemorrhagic anemia; O24.420 Gestational diabetes mellitus in childbirth, diet controlled; O10.92 Unspecified pre-existing hypertension complicating childbirth; A60.9 Anogenital herpesviral infection, unspecified; Z20.828 Contact with and (suspected) exposure to other viral communicable diseases; O90.81 Anemia of the puerperium; Z37.0 Single live birth; Z3A.37 37 weeks gestation of pregnancy
CPT/HCPCS: 1961; 36415; 59025; 80307; 81001; 85027; 86850; 86900; 86901; 87635; 94760; 94799; C9803; J0690; J1756; J1885; J2250; J2270; J2405; J2550; J2590; J3010; J3490